=== PATIENT | female | born 1990 | race African-American/Black ===

== ENCOUNTER 2017-09-17 21:48 | Day surgery (SDC) | payer OTHER ==
[~2017-09-17] VITALS: Ht 157.5 cm; Wt 68.2 kg
[2017-09-17] MEDS: NS 1,000 ML IV SCH (23:35)
[2017-09-17 23:37] LABS: BASO # 0.1 10^3/uL (0.0-0.2); BASO % 0.6 % (0.0-1.0); EOS # 0.1 10^3/uL (0.0-0.50); EOS % 1.1 % (0.0-3.0); IMMATURE GRANULOCYTE % 0.1 % (0-0); LYMPH # 3.9 10^3/uL (1.5-6.5); LYMPH % 47.8 % (24.0-44.0); MEAN CORPUSCULAR HEMOGLOBIN 30.6 pg (27.0-33.0); MEAN CORPUSCULAR HGB CONC 33.1 g/dl (32.0-36.5); MEAN CORPUSCULAR VOLUME 92.5 fl (80.0-96.0); MONO # 0.4 10^3/uL (0.0-0.8); MONO % 4.9 % (0.0-5.0); NEUTROPHILS # 3.7 10^3/uL (1.8-7.7); NEUTROPHILS % 45.5 % (36.0-66.0); PLATELET COUNT, AUTOMATED 275 10^3/uL (150-450); RED CELL DISTRIBUTION WIDTH 13.2 % (11.5-14.5); WHITE BLOOD COUNT 8.1 10^3/uL (4.0-10.0)
[2017-09-17] MEDS ORDERED: MORPHINE 4 MG/ML 1ML SYRINGE IV ONE (23:45)
[2017-09-17] MEDS ORDERED: ONDANSETRON 4MG/2ML VIAL (J2405) IV ONE (23:45)
[2017-09-17 23:53] LABS: CONTROL LINE HCG INT CTR LINE PRESENT
[2017-09-17 23:58] LABS: ALBUMIN 3.5 GM/DL (3.2-5.2); ALBUMIN/GLOBULIN RATIO 1.03 (1.00-1.93); ALKALINE PHOSPHATASE 53 U/L (45-117); ALT/SGPT 20 U/L (12-78); ANION GAP 5 MEQ/L (8-16); AST/SGOT 16 U/L (7-37); BILIRUBIN,DIRECT 0.1 MG/DL (0.0-0.2); BILIRUBIN,TOTAL 0.3 MG/DL (0.2-1.0); BLOOD UREA NITROGEN 19 MG/DL (7-18); CALCIUM LEVEL 8.4 MG/DL (8.5-10.1); CARBON DIOXIDE LEVEL 28 MEQ/L (21-32); CHLORIDE LEVEL 105 MEQ/L (98-107); GLOMERULAR FILTRATION RATE > 60.0 (>60); GLUCOSE, FASTING 84 MG/DL (70-105); POTASSIUM SERUM 3.9 MEQ/L (3.5-5.1); SODIUM LEVEL 138 MEQ/L (136-145); TOTAL PROTEIN 6.9 GM/DL (6.4-8.2)
[2017-09-18] VITALS (7 sets, daily range): BP systolic 93–114; BP diastolic 57–63
[2017-09-18] MEDS ORDERED: GASTROGRAFIN SOLUTION 30ML PO ONE (00:20)
[2017-09-18] MEDS: NS 1,000 ML IV SCH ×2 (00:22→04:03)
[2017-09-18] MEDS ORDERED: GASTROGRAFIN SOLUTION 30ML (Q9963) As Ordered ONE (00:44)
[2017-09-18] MEDS ORDERED: GASTROGRAFIN SOLUTION 30ML (Q9963) PO ONE (00:50)
[2017-09-18] MEDS ORDERED: ISOVUE-370 76% 100ML VIAL (Q9967) As Ordered ONE (01:42)
--- NOTE | 2017-09-18 03:00 | REPUSA ---
CLINICAL HISTORY: Abdominal pain. TECHNIQUE: Multiple axial and coronal CT images were obtained through the abdomen and pelvis after ad ministration of oral and intravenous contrast material. COMMENTS: Diffuse thickening and enhancement of the appendix. Mild surrounding fat stranding. Mild surrounding free fluid. The liver is mildly enlarged with decreased attenuation without mass or defect. There is no intra or extrahepatic biliary ductal dilatation. The spleen is normal. The gallbladder is within normal limits . The pancreas is of normal contour and attenuation characteristics. There is no evidence of adrenal mass. Both kidneys demonstrate prompt and equal nephrograms. The kidneys are normal in size, shape and conf iguration. There is no evidence of renal or ureteral mass. No renal or ureteral calculi are identifie d. There is no hydroureter or hydronephrosis. There is no bowel wall thickening. No evidence for small or large bowel obstruction. There is no evid ence of abdominal ascites or lymphadenopathy. Moderate amount of fecal residue in the large bowels. There is no evidence of intrinsic or extrinsic bladder mass. There is no pelvic ascites or lymphadeno jennifer. Images of the lung bases show no evidence of pleural or parenchymal mass. There are no pleural effusi ons. The bony structures are free of lytic or blastic lesions. IMPRESSION: Large bowel fecal stasis. Mild hepatomegaly with fatty infiltration. Suspected mild changes of developing acute appendicitis. Surgical consultation is recommended. Thank you for your kind referral of this patient.
[2017-09-18] MEDS ORDERED: PIPERACILLIN/TAZOBACTAM SOD 3.375 GM in APPROPRIATE DILUENT 1 EA IV ONE (04:00)
[2017-09-18] MEDS: LR 1,000 ML IV SCH ×3 (05:15→21:15)
--- NOTE | 2017-09-18 11:37 | HPE ---
DATE OF ADMISSION: 09/18/2017 REASON FOR CONSULTATION: Abdominal pain. HISTORY OF PRESENT ILLNESS: The patient 26-year-old female who presents with a right lower quadrant abdominal pain that started around 5 p.m. last evening. The pain got progressively worse, so she came into emergency room for evaluation. In the emergency room (ER), she had normal vital signs and normal laboratories. However, a CT scan showed findings of mild constipation, as well as some right lower quadrant inflammation around the appendix suggestive of early acute appendicitis. She was admitted to [place] for observation. This morning, she is still having persistent pain in that right lower side. No nausea or vomiting. No fevers or chills. No other complaints other than this localized right lower quadrant pain. She denies any recent travel or illnesses. No previous trauma or recent trauma to the area. PAST MEDICAL HISTORY: Negative. ALLERGIES: None. SOCIAL HISTORY: Denies drug, alcohol, tobacco abuse. PREVIOUS SURGERIES: None. FAMILY HISTORY: Noncontributory. REVIEW OF SYSTEMS: Per positives and negative as stated in the history of present illness (HPI). PHYSICAL EXAMINATION General: Alert and oriented times three. No acute distress. Vital signs: Temperature 98, pulse 61, respirations 16, blood pressure 93/57, pulse oximetry 99% on room air. HEENT: Pupils equal, round, and reactive to light and accommodation. Heart: S1, S2, regular rate and rhythm. Lungs: Clear to auscultation bilaterally. Abdomen: Soft. Tender to palpation in the right lower quadrant. Localized guarding. No rebound. No rigidity. Bowel sounds positive. Extremities: No clubbing, cyanosis, or edema. LABORATORIES: White count 8.1, hemoglobin 12.2, platelets 275. Sodium 138, potassium 3.9. IMAGING: CT abdomen and pelvis shows large bowel fecal stasis, mild changes of developing acute appendicitis. There is diffuse thickening and enhancement of the appendix with mild surrounding fat stranding and mild surrounding free fluid. ASSESSMENT AND PLAN: The patient is a 26-year-old female with signs and symptoms consistent with acute appendicitis. RECOMMENDATION: Proceed with laparoscopic, possible open appendectomy. The risks and benefits of the procedure not limited but including bleeding, infection, hernia formation, damage to surrounding structures, possible need for further surgery were discussed in detail with the patient. Informed consent was obtained, and procedure was planned. After her procedure this afternoon, she will be kept on antibiotics overnight with plan for discharge home in the morning.
[2017-09-18] MEDS ORDERED: KETOROLAC 30 MG/ML VIAL (J1885) IV PRN (11:45)
[2017-09-18] MEDS ORDERED: ACETAMINOPHEN TAB 650MG DOSE (2X325MG) PO PRN (11:45)
[2017-09-18] MEDS: SENOKOT S TAB PO SCH ×2 (12:07→21:00)
[2017-09-18] MEDS: PIPERACILLIN/TAZOBACTAM SOD 3.375 GM in APPROPRIATE DILUENT 1 EA IV SCH ×2 (14:37→19:00)
[2017-09-18] MEDS: HEPARIN SOD (PORCINE) 5000 UNITS/ML VIAL SC SCH ×2 (15:51→22:00)
[2017-09-18] MEDS ORDERED: BUPIVACAINE/EPIN 0.25% 30 ML VIAL As Ordered ONE (17:21)
[2017-09-18] MEDS ORDERED: PROPOFOL 200 MG/20 ML VIAL As Ordered ONE (17:25)
[2017-09-18] MEDS ORDERED: ROCURONIUM BROMIDE 50 MG/5 ML VIAL/SYRINGE As Ordered ONE (17:25)
[2017-09-18] MEDS ORDERED: MIDAZOLAM INJ 2 MG/2 ML VIAL (J2250) As Ordered ONE (17:26)
[2017-09-18] MEDS ORDERED: fentaNYL 100 MCG/2 ML INJECTION (J3010) As Ordered ONE (17:26)
[2017-09-18] MEDS ORDERED: dexameTHASONE 4 MG/ML 1ML VIAL (J1100) As Ordered ONE (19:52)
[2017-09-18] MEDS ORDERED: NEOSTIGMINE 10 MG/10 ML VIAL (J2710) As Ordered ONE (19:52)
[2017-09-18] MEDS ORDERED: KETOROLAC 60 MG/2 ML VIAL (J1885) As Ordered ONE (19:52)
[2017-09-18] MEDS ORDERED: GLYCOPYRROLATE INJ 0.2 MG/ML 2 ML VIAL As Ordered ONE (19:52)
[2017-09-18] MEDS ORDERED: HYDROmorphone HCL 2 MG/ML 1ML VIAL (J1170) As Ordered ONE (20:08)
[2017-09-18] MEDS ORDERED: ONDANSETRON 4MG/2ML VIAL (J2405) As Ordered ONE (20:23)
[2017-09-18] MEDS ORDERED: PERCOCET 5MG/325MG TAB PO PRN (20:30)
[2017-09-18] MEDS ORDERED: HYDROmorphone HCL 1 MG/ML SYRINGE (J1170) IV PRN (20:30)
[2017-09-18] MEDS ORDERED: fentaNYL 100 MCG/2 ML INJECTION (J3010) IV PRN (20:30)
[2017-09-18] MEDS ORDERED: ONDANSETRON 4MG/2ML VIAL (J2405) IV PRN (20:30)
[2017-09-18] MEDS ORDERED: LR 1,000 ML IV SCH (20:30)
[2017-09-18] MEDS: ONDANSETRON 4MG/2ML VIAL (J2405) IV PRN (20:35)
--- NOTE | 2017-09-18 20:36 | RO ---
DATE OF PROCEDURE: 09/18/2017 PREOPERATIVE DIAGNOSIS: Acute appendicitis. POSTOPERATIVE DIAGNOSIS: Acute appendicitis. PROCEDURE: Laparoscopic appendectomy. SURGEON: Dr. Bin Beckwith [place] ROUTEMAN: None. ANESTHESIA: General. ESTIMATED BLOOD LOSS: 5 mL. COMPLICATIONS: None. INDICATIONS FOR PROCEDURE: The patient is a 26-year-old female who presents with right lower quadrant abdominal pain, found to have early acute appendicitis on CT. Recommendation was to proceed with laparoscopic, possible open appendectomy. Risks and benefits of procedure not limited to but including bleeding, infection, hernia formation, damage to surrounding structures and need for further surgery were discussed in detail with the patient. Informed consent was obtained and procedure was planned. DESCRIPTION OF PROCEDURE: The patient brought back to operating room six, after sufficient sedation the abdomen was sterilely prepped and draped. Next, a time-out was done to confirm proper patient, proper procedure. Following that, a 5 mm incision made in the left upper quadrant, Veress needle was inserted and the abdomen was insufflated to 15 mmHg. Next, the Veress needle was removed, 5 mm Optiview port was used to gain access to the abdomen. Once the abdomen was entered, 8 mm port was placed infraumbilically and another 5 mm port suprapubically in the midline. The appendix was easily identified. It was elevated up in the air, mesoappendix was taken down using the Enseal until the base of the appendix was reached. Once the base of the appendix was reached, it was ligated with two PDS Endoloops and then amputated using the Enseal. The appendix was then brought out through the 8 mm port site in a 5 mm EndoCatch bag. Once the appendix was removed, the abdomen was desufflated. Skin incisions were closed with #4-0 Vicryl subcuticular sutures. The abdomen was cleaned and dried. Steri-Strips, 4 x 4 and tape were applied thus ending procedure.
[2017-09-18] MEDS: MORPHINE 2 MG/ML 1ML SYRINGE IV PRN (23:45)
[2017-09-19 00:35] VITALS: BP 106/59
[2017-09-19] MEDS: PIPERACILLIN/TAZOBACTAM SOD 3.375 GM in APPROPRIATE DILUENT 1 EA IV SCH ×3 (00:49→13:05)
[2017-09-19] MEDS: LR 1,000 ML IV SCH (00:49)
[2017-09-19] MEDS: NORCO, ANEXSIA 5/325MG TABLET (HYDROcodone/ACETAMINOPHEN) PO PRN ×2 (01:30→11:49)
[2017-09-19 03:00] VITALS: BP 125/72
[2017-09-19] MEDS: ONDANSETRON 4MG/2ML VIAL (J2405) IV PRN ×2 (03:16→09:28)
[2017-09-19] MEDS: MORPHINE 2 MG/ML 1ML SYRINGE IV PRN (03:16)
[2017-09-19] MEDS: HEPARIN SOD (PORCINE) 5000 UNITS/ML VIAL SC SCH ×2 (06:36→14:55)
[2017-09-19 06:57] LABS: MEAN CORPUSCULAR HEMOGLOBIN 30.2 pg (27.0-33.0); MEAN CORPUSCULAR HGB CONC 33.6 g/dl (32.0-36.5); MEAN CORPUSCULAR VOLUME 89.7 fl (80.0-96.0); PLATELET COUNT, AUTOMATED 260 10^3/uL (150-450); RED CELL DISTRIBUTION WIDTH 12.6 % (11.5-14.5); WHITE BLOOD COUNT 11.7 10^3/uL (4.0-10.0)
[2017-09-19 07:14] LABS: ALBUMIN 3.4 GM/DL (3.2-5.2); ALBUMIN/GLOBULIN RATIO 1.06 (1.00-1.93); ALKALINE PHOSPHATASE 56 U/L (45-117); ALT/SGPT 20 U/L (12-78); ANION GAP 7 MEQ/L (8-16); AST/SGOT 17 U/L (7-37); BILIRUBIN,TOTAL 0.5 MG/DL (0.2-1.0); BLOOD UREA NITROGEN 11 MG/DL (7-18); CALCIUM LEVEL 8.6 MG/DL (8.5-10.1); CARBON DIOXIDE LEVEL 25 MEQ/L (21-32); CHLORIDE LEVEL 102 MEQ/L (98-107); CREATININE FOR GFR 0.79 MG/DL (0.55-1.02); GLOMERULAR FILTRATION RATE > 60.0 (>60); GLUCOSE, FASTING 141 MG/DL (70-105); MAGNESIUM LEVEL 1.6 MG/DL (1.8-2.4); POTASSIUM SERUM 4.1 MEQ/L (3.5-5.1); SODIUM LEVEL 134 MEQ/L (136-145); TOTAL PROTEIN 6.6 GM/DL (6.4-8.2)
[2017-09-19 08:02] VITALS: BP 116/67
[2017-09-19 11:48] VITALS: BP 119/69
[2017-09-19] MEDS: SENOKOT S TAB PO SCH (11:49)
[2017-09-19] MEDS ORDERED: SENN1TAB2 PO (15:01)
--- NOTE | 2017-09-20 17:07 | DSES ---
DATE OF ADMISSION: 09/18/2017 DATE OF DISCHARGE: 09/19/2017 ADMISSION DIAGNOSIS: Acute appendicitis. DISCHARGE DIAGNOSIS: Acute appendicitis. HOSPITAL COURSE: The patient is 26-year-old female presented early in the morning on the she was found to have acute appendicitis on CT scan she was taken to the operating room in the afternoon for laparoscopic appendectomy. Tolerated procedure well. She was started back on a regular diet in the evening. On the morning of 09/19 she was having a lot of gas pains from her surgery in the right upper quadrant going the right shoulder. She was advised to continue to ambulate which she did by the afternoon of the and her pain was much resolved. She was tolerating diet, pain was controlled and she was discharged home. She was discharged home with pain control and pain control and a stool softener. She did not require any antibiotics at discharge. She will followup with me in the office in 2 weeks. No lifting, pushing or pulling more 20 pounds for the first 2 weeks. No lifting, pushing, or pulling more than 20 pounds for the first 2 weeks, okay to shower and she was given instructions to call me if she has any problems or questions.
== END 2017-09-19 15:40 | disposition home or self-care (01) ==
LOC: M ED 21:48 → M SDC 09-18 03:55 → M PED 09-18 04:40 → M SDC 09-19 15:40
PROVIDERS: ATTEND Surgery
DX: K35.80 Unspecified acute appendicitis (principal); Z91.018 Allergy to other foods
CPT/HCPCS: 36415; 44970; 74177; 80048; 80053; 80076; 81001; 83690; 83735; 84703; 85025; 85027; 87040; 87077; 87086; 87186; 88304; 93041; 96374; 96375; 96376; 99285; J1100; J1170; J1885; J2250; J2405; J2543; J2710; J3010; Q9963; Q9967

== ENCOUNTER 2017-10-20 20:30 | Emergency (ER) | payer OTHER ==
[~2017-10-20] VITALS: Ht 157.5 cm; Wt 77.3 kg
[~2017-10-20 20:30] MED LIST: SENN1TAB2 PO
[2017-10-20] MEDS ORDERED: SENE8.6T (20:37)
--- NOTE | 2017-10-20 22:40 | REPUSA ---
Clinical history: Pain, swelling. Findings: The common femoral, superficial femoral, popliteal, and other deep venous structures compre ss normally and demonstrate normal color Doppler flow. Normal venous waveforms with augmentation are seen. Impression: No evidence of deep vein thrombosis in the right femoral popliteal venous system.
[2017-10-20 23:11] VITALS: BP 130/67
== END 2017-10-20 23:24 | disposition home or self-care (01) ==
LOC: M ED 20:30
DX: R22.41 Localized swelling, mass and lump, right lower limb (principal); Z79.899 Other long term (current) drug therapy

== ENCOUNTER 2018-01-03 09:28 | Emergency (ER) | payer OTHER ==
[2018-01-03] MEDS: METHOCARBAMOL 500 MG TAB PO (10:08)
[2018-01-03] MEDS: IBUPROFEN 600 MG TAB PO (10:09)
== END 2018-01-03 10:17 | disposition home or self-care (01) ==
LOC: M ED 09:28
DX: M54.42 Lumbago with sciatica, left side (principal); Z91.018 Allergy to other foods
CPT/HCPCS: 99283

== ENCOUNTER 2018-02-03 08:25 | Emergency (ER) | payer OTHER ==
[2018-02-03 09:48] LABS: BASO % 0.4 % (0.0-1.0); EOS # 0.1 10^3/uL (0.0-0.50); EOS % 1.9 % (0.0-3.0); HEMATOCRIT 39.5 % (36.0-47.0); HEMOGLOBIN 13.2 g/dl (12.0-15.5); IMMATURE GRANULOCYTE % 0.1 % (0-3.0); LYMPH # 2.7 10^3/uL (1.5-6.5); LYMPH % 40.8 % (24.0-44.0); MEAN CORPUSCULAR HEMOGLOBIN 30.1 pg (27.0-33.0); MEAN CORPUSCULAR HGB CONC 33.4 g/dl (32.0-36.5); MEAN CORPUSCULAR VOLUME 90.2 fl (80.0-96.0); MONO # 0.4 10^3/uL (0.0-0.8); MONO % 5.7 % (0.0-5.0); NEUTROPHILS # 3.4 10^3/uL (1.8-7.7); NEUTROPHILS % 51.1 % (36.0-66.0); PLATELET COUNT, AUTOMATED 281 10^3/uL (150-450); RED BLOOD COUNT 4.38 10^6/uL (4.00-5.40); WHITE BLOOD COUNT 6.7 10^3/uL (4.0-10.0)
[2018-02-03 09:52] LABS: KETONE, URINE AUTO RFX NEGATIVE (NEGATIVE); LEUKOCYTE ESTERASE UR AUTO RFX NEGATIVE (NEGATIVE); NITRITE, URINE AUTO RFX NEGATIVE (NEGATIVE); RBC, URINE AUTO RFX 0 /HPF (0-3); SPECIFIC GRAVITY UR AUTO RFX 1.002 (1.002-1.035); SQUAM EPITHELIAL CELL UR AURFX 1 /HPF (0-6); WBC, URINE AUTO RFX 0 /HPF (0-3)
[2018-02-03 10:17] LABS: HCG, SERUM QUANTITATIVE 99 MIU/ML
== END 2018-02-03 11:17 | disposition home or self-care (01) ==
LOC: M ED 08:25
DX: O20.0 Threatened abortion (principal); O34.81 Maternal care for other abnormalities of pelvic organs, first trimester; N83.201 Unspecified ovarian cyst, right side; Z3A.00 Weeks of gestation of pregnancy not specified; Z86.69 Personal history of other diseases of the nervous system and sense organs; Z87.19 Personal history of other diseases of the digestive system; Z91.018 Allergy to other foods
CPT/HCPCS: 76801

== ENCOUNTER 2021-02-10 01:38 | Emergency (ER) | payer OTHER ==
[~2021-02-10] VITALS: Ht 154.9 cm; Wt 81.9 kg
[~2021-02-10 01:38] MED LIST changes: +IBUP-1022 PO; +ROBA500T PO; +SENN-53 PO; -SENN1TAB2 PO; +SENN1TAB38
--- NOTE | 2021-02-10 03:37 | REPVR ---
PROCEDURE INFORMATION: Exam: US After First Trimester, Transabdominal Exam date and time: 02/10/2021 2:57 AM Age: 30 years old Clinical indication: complicated by abdominal or pelvic pain; Lower; Second trimester; Gestational age or lmp: 10/08/20; ; Additional info: 17 wk, pain and bleeding TECHNIQUE: Imaging protocol: Real-time transabdominal obstetrical ultrasound of the maternal pelvis and a second or third trimester with image documentation. COMPARISON: CT ABD/PEL W/IV ORAL CONTRAS 09/18/2017 1:43 AM FINDINGS: Gestation: Single intrauterine fetus. heart rate: heartbeat of 146 bpm. lie: Lie is variable Placenta: Posterior and fundal placenta. Amniotic fluid: Amniotic fluid is normal for gestational age. ANATOMY: The bladder, stomach, intracranial structures, cord insertion, visualized extremities, cord, face, nose/lips and profile, kidneys and four-chamber heart appear normal. BIOMETRY: Gestational age (AUA): The composite gestational age by ultrasound is 18 weeks 1 day. Estimated due date (AUA): The EDC is 07/13/2021. Estimated weight: The estimated weight is 223 grams and is 60th percentile. Estimated weight percentile: 60th Biparietal diameter: The BPD measures 4.0 cm suggesting an age of 18 weeks 2 days. Head circumference: The head circumference measures 14.8 cm suggesting an age of 18 weeks 0 days. Abdominal circumference: The abdominal circumference measures 12.5 cm suggesting an age of 18 weeks 1 day. Femur length: The femur length measures 2.6 cm suggesting an age of 18 weeks 1 day. MATERNAL ANATOMY: Uterus: Unremarkable. Cervix: The cervix is closed measuring 4.5 cm. IMPRESSION: Single live intrauterine fetus in variable lie with a composite age of 18 weeks 1 day. The EDC is 07/13/2021. Electronically signed by: Hector Patton On 02/10/2021 03:38:14 AM
[2021-02-10 05:21] VITALS: BP 130/70
== END 2021-02-10 05:09 | disposition home or self-care (01) ==
LOC: M ED 01:38
DX: O26.859 Spotting complicating pregnancy, unspecified trimester (principal); Z3A.18 18 weeks gestation of pregnancy; Z91.018 Allergy to other foods

== ENCOUNTER 2021-06-03 16:43 | Observation (INO) | payer OTHER ==
[~2021-06-03] VITALS: Ht 157.5 cm; Wt 74.7 kg
[2021-06-03 17:02] VITALS: BP 101/56
[2021-06-03 18:06] LABS: HEMATOCRIT 32.4 % (36.0-47.0); HEMOGLOBIN 11.1 g/dl (12.0-15.5); MEAN CORPUSCULAR HEMOGLOBIN 31.3 pg (27.0-33.0); MEAN CORPUSCULAR HGB CONC 34.3 g/dl (32.0-36.5); MEAN CORPUSCULAR VOLUME 91.3 fl (80.0-96.0); PLATELET COUNT, AUTOMATED 153 10^3/uL (150-450); RED BLOOD COUNT 3.55 10^6/uL (4.00-5.40); WHITE BLOOD COUNT 4.4 10^3/uL (4.0-10.0)
--- NOTE | 2021-06-03 18:16 | REP ---
INDICATION: r/o covid 19. COMPARISON: None. FINDINGS: The technique utilized in obtaining the radiograph has magnified the cardiac silhouette and accentuated the interstitial markings. The superior mediastinal structures are midline. The cardiac silhouette is unremarkable in size, shape, and position. The diaphragmatic surfaces of the lungs are regular, and the costophrenic angles are clear. The pulmonary marroquin are clear. The imaged osseous structures are intact. IMPRESSION: There is no acute cardiopulmonary disease. <Electronically signed by Juanjose Mei > 06/03/21 [id number]
[2021-06-03 18:35] LABS: BLOOD UREA NITROGEN 4 MG/DL (7-18); CALCIUM LEVEL 7.8 MG/DL (8.5-10.1); CARBON DIOXIDE LEVEL 22 MEQ/L (21-32); CHLORIDE LEVEL 108 MEQ/L (98-107); CREATININE FOR GFR 0.54 MG/DL (0.55-1.30); GLOMERULAR FILTRATION RATE > 60.0 (>60); GLUCOSE, FASTING 109 MG/DL (70-100); POTASSIUM SERUM 3.5 MEQ/L (3.5-5.1); SODIUM LEVEL 138 MEQ/L (136-145)
[2021-06-03] MEDS ORDERED: CYCLOBENZAPRINE 10MG TABLET PO ONE (19:20)
--- NOTE | 2021-06-03 19:58 | HPEPDOC ---
Obstetrical History & Physical General Date of Admission 06/03/2021 History of Present Illness 30 yo @ 33+6 weeks who presents with left sided abdominal pain after 2 days of couphing. patient had a friend visiting from [place] who tested positive for covid yesterday. patient was seen at [facility] and in the ED but was not ev aluated due to her abdominal pain. she was tested here in triage and was found to be positive for covid 19. in addition, she reports chest pain when she takes deep breaths. she is saturating 98 on room air. she denies an vaginal bleeding, loss of fluids, decreased movements. 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 BREAST: . ABDOMEN: Gravid and tender to the right side of the abdomen FETUS:reactive NST HEART RATE: Regular rate and rhythm. LUNGS: Clear to auscultation (CTA) to the left side. no breath sounds heard on the right side EXTREMITIES: No edema. No clonus. Deep tendon reflexes (DTRs) + . Vital Signs/I&O Vital Signs Date Time Temp Pulse Resp B/P (MAP) Pulse Ox O2 Delivery O2 Flow Rate FiO2 06/03/21 17:02 99.6 98 20 101/56 (71) 99 Room Air Laboratory Data 24H LABS Laboratory Tests 2 06/03/21 17:47: Nucleated Red Blood Cells % (auto) 0.0, Anion Gap 8, Glomerular Filtration Rate > 60.0, Calcium Level 7.8L CBC/BMP Laboratory Tests 06/03/21 17:47 Microbiology Microbiology 06/03/21 Respiratory Virus Panel (PCR) ([facility]) - Final, Complete SARS-CoV-2 (COVID 19) Assessment Heart Rate (FHR): 145 Variability: Moderate Accelerations: Positive Decelerations: None Tocometer Contractions: Yes Frequency: irregular Duration: less than 60 seconds Assessment/Plan Assessment 30 yo @ 34 weeks who presents with left sided abdominal pain after 2 days of couching and found to be positive for covid 19. she is saturating 98 on room air.has reactive NST and irregular contractions. she is having pleuritic chest pain. X-RAY was obtained and is unremarkable -Hospitalist consulted and will be following -will give Flexeril for suspected musculoskeletal pain -will obtain kidney US for CVA tenderness - Had normal CBC, CMP labs -will keep for observation per Hospitalist team recommandation -WE appreciate hospitalist team help in caring for this patient Plan Admit for observation and orient. 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 Diet: regular. TRACE ECKERT MD Jun 03, 2021 19:58
[2021-06-03] MEDS ORDERED: ACETAMINOPHEN TAB 650MG DOSE (2X325MG) PO PRN (20:00)
--- NOTE | 2021-06-03 20:32 | CR.PDOC ---
General Date of Consultation: Jun 03, 2021 Consultation REASON FOR CONSULTATION/CHIEF COMPLAINT: positive for COVID-19, cough HISTORY OF PRESENT ILLNESS: 30 yo F, at 33W+6D, presented to ER with a 1 day hx of cough, malaise, LUQ and L low back pain radiating to flank. She also had a fever recorded at home to 102.0, which responded well to OTC acetaminophen. Patient had a visitor who tested positive for covid. Patient tested positive for Covid-19 today. Patient denies SOB, hemoptysis, focal weakness or numbness, dysuria. She has subjective fevers and chills. Hospitalist service was consulted for evaluation due to diagnosis of covid-19. reviewed patient's labs and vitals. She is saturating at 98% at rest, and does not desaturate on ambulation. ALLERGIES: Please see below. HOME MEDICATIONS: Please see below. PAST MEDICAL HISTORY: Pyelonephritis PAST SURGICAL HISTORY: Appendectomy FAMILY HISTORY: Reports history of cardiac events on mother's side, unable to specify further SOCIAL HISTORY: Non smoker Non drinker No illicit drug use REVIEW OF SYSTEMS: 10 point ROS conducted, relevant findings are noted in the HPI. PHYSICAL EXAMINATION: VITAL SIGNS: please see below General: NAD, comfortable HEENT: PERRLA, EOMI, sclerae clear Neck: supple, normal ROM, no JVD Respiratory: lungs CTAB, no wheeze, no rales, no crackles CVS: RRR, normal S1, S2, no murmurs Abdo: gravid abdomen. Mild to mod tenderness to palpation in LUQ. Extremities: no edema, pulses 2+, no swelling of calves. MSK: L CVA tenderness Neuro: no focal neuro deficits, moving all 4 extremities, CN2-12 intact. Strength 5/5 in all 4 extremities. No nystagmus. Psych: calm, cooperative, AAO x 3 LABORATORY DATA: Please see below. ASSESSMENT/PLAN: #Covid-19 positive: Day 1 of symptom onset. Positive contact. No hypoxia at rest or exertion. No dyspnea. Primary symptom is malaise, fevers, cough. not a candidate for remdesivir or dexamethasone based on oxygenation. lack of evidence of safety profile to suggest use of monoclonal antibodies in , would avoid use at this time. Support care recommended: tylenol prn for fevers, oral fluid repletion, bed rest. DVT ppx while in hospital with lovenox. #LUQ pain, L flank pain/CVA tenderness: Cr 0.54. Voiding spontaneously. Check UA with urine culture. Check renal US. OB causes of abdo pain being worked up by primary OB service. Thank you for involving me in the care of this patient. Will continue to follow. Vital Signs/I&O Vital Signs Date Time Temp Pulse Resp B/P (MAP) Pulse Ox O2 Delivery O2 Flow Rate FiO2 06/03/21 17:02 99.6 98 20 101/56 (71) 99 Room Air Laboratory Data Labs 24H Laboratory Tests 2 06/03/21 17:47: Nucleated Red Blood Cells % (auto) 0.0, Anion Gap 8, Glomerular Filtration Rate > 60.0, Calcium Level 7.8L CBC/BMP Laboratory Tests 06/03/21 17:47 Microbiology Microbiology 06/03/21 Respiratory Virus Panel (PCR) ([facility]) - Final, Complete SARS-CoV-2 (COVID 19) Allergies Coded Allergies: pineapple (Verified Allergy, Unknown, 02/10/21) Home Medications No Active Prescriptions or Reported Meds PAO ARANA MD Jun 03, 2021 20:32
[2021-06-03 22:10] VITALS: BP 114/73
[2021-06-03 22:19] VITALS: BP 97/58
[2021-06-03] MEDS: LR 1,000 ML IV SCH (22:33)
[2021-06-04] MEDS: LR 1,000 ML IV SCH (03:55)
[2021-06-04 04:00] VITALS: BP 104/67
[2021-06-04] MEDS ORDERED: PERCOCET 5MG/325MG TAB PO PRN (06:05)
--- NOTE | 2021-06-04 08:24 | REP ---
INDICATION: r/o hydronephrosis. COMPARISON: None. TECHNIQUE: Multiple ultrasonographic images of the kidneys. FINDINGS: Patient is at 34 weeks gestational age. heart rate is 150 beats per minute. The fetus is in a vertex presentation. The right kidney measures 11.3 x 6.3 x 4.1 cm. The left kidney measures 12.1 x 5.1 by 5.8 cm. The kidneys are normal size. Renal cortical echogenicity is normal bilaterally. The right renal pelvis is dilated. There is mild right renal caliectasis. The left renal pelvis is dilated. There is left renal mild caliectasis. There are no renal calculi. There are no solid or cystic renal masses. Bladder: The bladder is not well distended. Were unable to identify ureteral jets with color Doppler assessment. The resistive index in the intraparenchymal renal arteries on the right is 0.61 on the left is 0.63. IMPRESSION: The renal pelves are dilated bilaterally. There is mild caliectasis bilaterally. The bladder is not well distended and cannot be further evaluated. <Electronically signed by Bin Zurita > 06/04/21 [id number]
[2021-06-04 08:49] LABS: BASO % 0.2 % (0.0-1.0); EOS % 0.2 % (0.0-3.0); HEMATOCRIT 31.1 % (36.0-47.0); HEMOGLOBIN 10.6 g/dl (12.0-15.5); LYMPH # 0.8 10^3/uL (1.5-5.0); LYMPH % 17.1 % (24.0-44.0); MEAN CORPUSCULAR HEMOGLOBIN 31.5 pg (27.0-33.0); MEAN CORPUSCULAR HGB CONC 34.1 g/dl (32.0-36.5); MEAN CORPUSCULAR VOLUME 92.6 fl (80.0-96.0); MONO # 0.4 10^3/uL (0.0-0.8); MONO % 8.8 % (2.0-8.0); NEUTROPHILS # 3.6 10^3/uL (1.5-8.5); NEUTROPHILS % 72.9 % (36.0-66.0); PLATELET COUNT, AUTOMATED 152 10^3/uL (150-450); RED BLOOD COUNT 3.36 10^6/uL (4.00-5.40); WHITE BLOOD COUNT 4.9 10^3/uL (4.0-10.0)
[2021-06-04] MEDS ORDERED: PRENATAL VITAMINS CHEWABLE TABLET PO SCH (09:00)
[2021-06-04] MEDS ORDERED: ENOXAPARIN 40MG/0.4ML SYRINGE (J1650 PER 10MG) SC SCH (09:00)
[2021-06-04 09:14] LABS: ERYTHROCYTE SEDIMENTATION RATE 35 mm/hr (0-20)
[2021-06-04 09:17] LABS: ALBUMIN 2.4 GM/DL (3.2-5.2); ALT/SGPT 28 U/L (12-78); BILIRUBIN,TOTAL 0.2 MG/DL (0.2-1.0); BLOOD UREA NITROGEN 4 MG/DL (7-18); C REACTIVE PROTEIN QUANTITATIV 0.68 MG/DL (0.00-0.30); CALCIUM LEVEL 8.1 MG/DL (8.5-10.1); CARBON DIOXIDE LEVEL 24 MEQ/L (21-32); CHLORIDE LEVEL 108 MEQ/L (98-107); CREATININE FOR GFR 0.43 MG/DL (0.55-1.30); GLOMERULAR FILTRATION RATE > 60.0 (>60); GLUCOSE, FASTING 101 MG/DL (70-100); LDH LACTATE DEHYDROGENASE 128 U/L (84-246); MAGNESIUM LEVEL 1.7 MG/DL (1.8-2.4); NT-PRO BNP 45 PG/ML (<125); POTASSIUM SERUM 3.5 MEQ/L (3.5-5.1); SODIUM LEVEL 137 MEQ/L (136-145); TOTAL PROTEIN 5.3 GM/DL (6.4-8.2); TROPONIN I < 0.02 NG/ML (< 0.10)
--- NOTE | 2021-06-04 11:11 | IPNPDOC ---
Text Note Date of Service The patient was seen on 06/04/21. NOTE SUBJECTIVE: Patient was seen and examined this morning at bedside. She states she is feeling well in regard to her breathing. She continues to have left-sided flank pain extending down to the left lower back and LUQ. OBJECTIVE: VITAL SIGNS: See below GENERAL: Alert, comfortable, in no acute distress HEENT: Normocephalic, atraumatic, moist mucous membranes NECK: Supple, trachea midline, no lymphadenopathy CARDIOVASCULAR: Regular rate and rhythm, normal S1 and S2. No murmurs, rubs, or gallops RESPIRATORY: Clear to auscultation bilaterally with equal air entry bilaterally. No wheezing, rhonchi, or rales. ABDOMEN: gravid abdomen. Mildly tender in the LUQ EXTREMITIES: No edema. no calf tenderness MUSCULOSKELETAL: tender over the left flank extending into the left lower back. No right sided tenderness. NEUROLOGIC: Alert and oriented x3 to person, place and time. No focal deficits appreciated PSYCHIATRIC: Mood and affect appropriate Renal U/S: The renal pelves are dilated bilaterally. There is mild caliectasis bilaterally. The bladder is not well distended and cannot be further evaluated. ASSESSMENT/PLAN: 30 year old female, at 34W+0D who presented with LUQ and left flank pain reporting fever at home up to 102F and one day of cough and malaise found to be positive for COVID-19, admitted by OB service to monitor her and medicine was consulted for additional recommendations # COVID-19 infection - symptomatically stable, fevers responsive to tylenol - no hypoxia, she is not not a candidate for remdesivir or dexamethasone at this time - lack of evidence for safety of monoclonal antibodies in - DVT ppx with lovenox recommended while in the hospital # L flank pain most likely 2/2 musculoskeletal cause - Cr stable, renal u/s does not show hydronephrosis but does comment on some pelvic dilation and caliectasis bilaterally - check UA which has not yet been collected - pain control per primary team Thank you for this consultation, we will continue to follow along with the care of this patient. VS,Fishbone, I+O VS, Fishbone, I+O Laboratory Tests 06/03/21 17:47 06/04/21 08:08 Vital Signs Date Time Temp Pulse Resp B/P (MAP) Pulse Ox O2 Delivery O2 Flow Rate FiO2 06/04/21 06:17 18 Room Air 06/04/21 04:00 100.2 98 104/67 (79) 99 I&O- Last 24 Hours up to 6 AM 06/04/21 06:00 Output Total 925 ml Balance -925 ml GME ATTESTATION GME ATTESTATION My faculty preceptor for this patient encounter was physically present during the encounter and was fully available. All aspects of the patient interview, examination, medical decision making process, and medical care plan development were reviewed and approved by the faculty preceptor. The faculty preceptor is aware and concurs with the plan as stated in the body of this note and will attest to such by his/her cosignature. ATTENDING NOTE I personally examined Ms. Moreno and discussed her findings and plan with the resident team and the OB primary team. I agree with the above noted findings and plan. Briefly, she is a 30 year old W at 34W who presented with LUQ and left flank pain and was admitted for observation after being found to be positive for COVID-19 and is otherwise doing relatively well with stable vitals, no hypoxemia and mild inflammatory marker elevation. She is safe for home discharge from a medicine perspective with recommendation for supportive tylenol for fever, aggressive hydration as tolerated and self isolation until resolution of symptoms or 14d. VIOLET BAL D.O. Jun 04, 2021 11:11 VASYL ACOSTA MD Jun 05, 2021 11:13
[2021-06-04 12:00] VITALS: BP 104/60
[2021-06-04] MEDS ORDERED: cefTRIAXone SOD 1 GM in D5W MINI-BAG PLUS 50 ML IV ONE (14:00)
--- NOTE | 2021-06-04 14:04 | IPNPDOC ---
Text Note Date of Service The patient was seen on 06/04/21. NOTE Patient seen at the bedside today in appropriate COVID-19 precaution attire. Elizabeth reports feeling tired. She continues to have left sided pelvic girdle and hip pain. She denies any vaginal bleeding, leakage of fluid, or contractions. She endorses regular movement. In addition, she denies any SOB, chest pain, or headaches. She is tolerating a regular diet. She is ambulatory. Vitals - VSS, afebrile (tmax 100.4) current temp 96.9. BP 100s/60s, HR 80s. O2 sats 97-99% on RA General - Laying in bed, AAOX3 Abdomen - Gravid uterus appropriate size for gestational age. No fundal tenderness. New Labs: UA - clean catch. 3+ leuk est, 2+ bacteria, 4 WBCs, neg nitrites Elizabeth remains stable today. Sats are well maintained on RA. No obstetrical concerns. Left sided pain seems to be MSK in origin (this has been a chronic issue), though urine is suspicious for possible UTI. Treated with one dose of IV rocephin as we await culture results. Will initiate oral antibiotics if necessary. We discussed monoclonal antibody treatment, as her increa ses her risk severe COVID-19 disease. She is a candidate and meets criteria. However, Elizabeth declined this treatment, citing her discomfort with the lack of data/studies on monoclonal antibody therapy for COVID-19 in . At this time she is stable for discharge home. We reviewed strict return precautions. She will isolate at home for 10 days. Much appreciate the hospitalist service's assistance in management of this patient. 30 minutes Gavin Rucker I+O Gavin CEBALLOS I+O Laboratory Tests 06/03/21 17:47 06/04/21 08:08 Vital Signs Date Time Temp Pulse Resp B/P (MAP) Pulse Ox O2 Delivery O2 Flow Rate FiO2 06/04/21 12:00 96.9 83 18 104/60 (75) 99 Room Air I&O- Last 24 Hours up to 6 AM 06/04/21 05:59 Output Total 925 ml Balance -925 ml CHARBEL BANKS DO Jun 04, 2021 14:04
--- NOTE | 2021-06-04 16:11 | DS.PDOC ---
Discharge Summary General Date of Admission Jun 03, 2021 at 16:44 Date of Discharge Jun 04 2021 Discharge Summary ADMITTING DIAGNOSES: 1. Third Trimester 2. Symptomatic COVID-19 DISCHARGE DIAGNOSES: 1. ZAHEER COMPLICATIONS/CHIEF COMPLAINT: Covid-19. HOSPITAL COURSE: Ms. Moreno is a 30 yo who was admitted at 33+6 weeks gestation for observation due to symptomatic COVID-19. She had a recent close contact who tested positive, and she then subsequently developed symptoms of fevers, malaise, and cough shortly thereafter. She presented to the ER and was sent to L&D for evaluation. While on L&D she tested positive for COVID-19. She had some right sided abdominal pain as well, but this was exacerbated by her cough and seemed to be a chronic issue. The hospitalist service was consulted during her admission for recommendations regarding her COVID-19 diagnosis. She did not require oxygen at any point while in the hospital. status remained reassuring and she had no obstetric complaints. UA was notable for possible UTI, and she was empirically treated with a dose of rocephin while we await urine culture results. She had no other symptoms of pyelonephritis. She met criteria for monoclonal antibody therapy and was offered it. She declined however, citing her concern of its lack of study in . On her day of discharge she met all appropriate discharge criteria. She was ambulating, voiding on her own, tolerating PO, maintaining O2 saturation on RA, and her fever was responsive to tylenol. DISCHARGE MEDICATIONS: Please see below. ALLERGIES: Please see below. PHYSICAL EXAMINATION ON DISCHARGE: VITAL SIGNS: Please see below. GENERAL: AAOX3, laying in bed, tired appearing CARDIOVASCULAR EXAMINATION: RRR RESPIRATORY EXAMINATION:CTAB ABDOMINAL EXAMINATION: Gravid uterus. No fundal tenderness EXTREMITIES: No edema PSYCHIATRIC EXAMINATION: Affect appropriate LABORATORY DATA: Please see below. ACTIVITY: Isolate at home for 10 days. Return to care for worsening symptoms such as SOB, chest pain, worsening fevers unresponsive to tylenol, vaginal bleeding, worsening abdominal pain, PO intolerance, leakage of fluid, or decreased movement. DIET: Regular DISCHARGE PLAN: Discharge home DISPOSITION: Discharge to home isolation. DISCHARGE INSTRUCTIONS: 1. Isolate at home for 10 days. ITEMS TO FOLLOWUP ON ON OUTPATIENT: 1. Contact the [facility] clinic at [phone] for worsening symptoms. DISCHARGE CONDITION: Stable TIME SPENT ON DISCHARGE: 20 minutes. Julian Vital Signs/I&Os Vital Signs Date Time Temp Pulse Resp B/P (MAP) Pulse Ox O2 Delivery O2 Flow Rate FiO2 06/04/21 12:00 96.9 83 18 104/60 (75) 99 Room Air I&O- Last 24 Hours up to 6 AM 06/04/21 06:00 Output Total 925 ml Balance -925 ml Laboratory Data Labs 24H Laboratory Tests 2 06/03/21 17:47: Nucleated Red Blood Cells % (auto) 0.0, Anion Gap 8, Glomerular Filtration Rate > 60.0, Calcium Level 7.8L 06/04/21 08:08: Nucleated Red Blood Cells % (auto) 0.0, Anion Gap 5L, Glomerular Filtration Rate > 60.0, Calcium Level 8.1L, Immature Granulocyte % (Auto) 0.8, Neutrophils (%) (Auto) 72.9H, Lymphocytes (%) (Auto) 17.1L, Monocytes (%) (Auto) 8.8H, Eosinophils (%) (Auto) 0.2, Basophils (%) (Auto) 0.2, Neutrophils # (Auto) 3.6, Lymphocytes # (Auto) 0.8L, Monocytes # (Auto) 0.4, Eosinophils # (Auto) 0.0, Basophils # (Auto) 0.0, Erythrocyte Sedimentation Rate 35H, Magnesium Level 1.7L, Total Bilirubin 0.2, Aspartate Amino Transf (AST/SGOT) 20, Alanine Aminotransferase (ALT/SGPT) 28, Alkaline Phosphatase 91, Lactate Dehydrogenase 128, Troponin I < 0.02, C-Reactive Protein, Quantitative 0.68H, JH-Nik-G-Type Natriuretic Peptide 45, Total Protein 5.3L, Albumin 2.4L, Albumin/Globulin Ratio 0.8L 06/04/21 12:21: Urine Color STRAW, Urine Appearance CLEAR, Urine pH 7.0, Urine Specific [place] 1.002, Urine Protein NEGATIVE, Urine Glucose (UA) NEGATIVE, Urine Ketones NEGATIVE, Urine Blood 1+H, Urine Nitrite NEGATIVE, Urine Bilirubin NEGATIVE, Urine Urobilinogen 0.2, Urine Leukocyte Esterase 3+H, Urine WBC (Auto) 4H, Urine RBC (Auto) 10H, Urine Hyaline Casts (Auto) 0, Urine Bacteria (Auto) 2+H, Urine Squamous Epithelial Cells 3, Urine Sperm (Auto) CBC/BMP Laboratory Tests 06/03/21 17:47 06/04/21 08:08 Microbiology Microbiology 06/04/21 Urine Culture, Received Pending 06/03/21 Respiratory Virus Panel (PCR) ([facility]) - Final, Complete SARS-CoV-2 (COVID 19) Discharge Medications No Active Prescriptions or Reported Meds Allergies Coded Allergies: pineapple (Verified Allergy, Unknown, 02/10/21) CHARBEL BANKS DO Jun 04, 2021 16:11
== END 2021-06-04 16:34 | disposition home or self-care (01) ==
LOC: M LDO 16:43 → M 4MAIN 16:44
PROVIDERS: ADMIT Obstetrics & Gynecology; ATTEND Registered Nurse
DX: O98.513 Other viral diseases complicating pregnancy, third trimester (principal); U07.1 COVID-19; Z3A.34 34 weeks gestation of pregnancy; O26.893 Other specified pregnancy related conditions, third trimester; R10.12 Left upper quadrant pain; R07.89 Other chest pain; M54.5 Low back pain; Z91.018 Allergy to other foods
CPT/HCPCS: 36415; 59025; 71045; 76775; 80048; 80053; 81001; 83615; 83735; 83880; 84484; 85025; 85027; 85652; 86140; 87086; 87798; 96374; J0696

== ENCOUNTER 2021-07-12 04:01 | Inpatient (IN) | payer OTHER ==
[~2021-07-12] VITALS: Ht 157.5 cm; Wt 93.9 kg
[2021-07-12] VITALS (20 sets, daily range): BP systolic 95–165; BP diastolic 52–105
[2021-07-12] MEDS ORDERED: TRANEXAMIC ACID INJection 1,000 MG in NS 100 ML IV PRN (04:50)
[2021-07-12] MEDS ORDERED: OXYTOCIN DRIP 30 UNITS in IV 1 EA IV PRN (04:50)
[2021-07-12] MEDS ORDERED: LIDOCAINE 1% MDV 20ML VIAL INFIL PRN (04:50)
[2021-07-12] MEDS ORDERED: PRENTAB9 PO (04:55)
--- NOTE | 2021-07-12 04:59 | HPEPDOC ---
Obstetrical History & Physical General Date of Admission Jul 12, 2021 at 04:47 History of Present Illness 30 yo at 39+3 weeks gestation presented to L&D with the complaint of wo rsening contractions over the last 24 hours. She endorses some spotting as well but denies any leakage of fluid. She endorses regular movement. Chief Complaint: Contractions, term Information Provided By: Patient Age: 30 : 2 Term: 0 Pre-term: 0 Abortions: 1 Livin Care Care: Good Care Dating Final EDC: Jul 16, 2021 Final EDC for Daily Update: Jul 16, 2021 Final EDC by: LMP (LMP of [id number] set PATRICK of [id number]) Antepartum Course Diagnos(e)s Depression/Anxiety Excessive weight gain (50 lbs) Past Medical History Past Obstetrical History : Past Obstetrical History: Multigravida (History of SAB) HOME HEALTH CARE COORDINATOR History: Spontaneous Past Medical History Medical History Depression/Anxiety Surgical History: Appendectomy Family History Significant Family History: No pertinent family hx Social History Marital Status: Family situation: Spouse/partner home Psychosocial History: Anxiety, Depression * Smoker: non-smoker Alcohol: Denies Imunizations Tdap status: current Influenza Status: needs Allergies Coded Allergies: pineapple (Verified Allergy, Unknown, 02/10/21) Medications No Active Prescriptions or Reported Meds Physical Examination Physical Examination GENERAL: Alert and oriented times three. ABDOMEN: Gravid and non-tender to touch. FETUS: Is vertex (VTX) by sterile vaginal examination (SVE) EXTREMITIES: No edema. Laboratory Data Urine Culture: No Growth Pertinent Laboratoy Data Blood Type: O+ RBC Antibody Screen: Negative HIV: Negative Hepatitis B: Negative Hepatitis C: Unknown Rapid Plasma Reagin: Nonreactive Rubella: Immune Varicella: Immune Chlamydia/Gonorrhea: Negative Group B Streptococcus: Negative Quad Screen Test: Unknown Cystic Fibrosis: Unknown Glucose Tolerance Test: 108 Anatomy Ultrasound Placenta Location: Posterior Normal Anatomy: Yes Placenta Previa: No Steroid Therapy Steroid Therapy: No Vaginal Examination Dilation: 3 cm Effacement: 90% Station: -2 Cervical Consistency: Soft Cervical Position: Middle Presentation: Cephalic presentation Position: Vertex (occiput) Assessment Heart Rate (FHR): 145 Variability: Moderate Accelerations: None Decelerations: None Tocometer Frequency: regular Strength: palpated as strong Assessment/Plan Assessment 30 yo at 39+3 weeks gestation presented to L&D in early labor and with a non reactive NST. Plan Admit for expectant management of labor. Will augment as clinically indicated. FHR tracing Cat I, with moderate variability, but no true accels. Apply IV fluids. GBS negative. Labs per L&D protocol. Clear liquid diet. Patient may have epidural if desired. Anticipate . CHARBEL BANKS. DO Jul 12, 2021 04:59
[2021-07-12] MEDS ORDERED: HOME MED LIST COMPLETE! XX SCH (06:00)
[2021-07-12 06:30] LABS: HEMATOCRIT 33.4 % (36.0-47.0); HEMOGLOBIN 11.6 g/dl (12.0-15.5); MEAN CORPUSCULAR HEMOGLOBIN 31.3 pg (27.0-33.0); MEAN CORPUSCULAR HGB CONC 34.7 g/dl (32.0-36.5); PLATELET COUNT, AUTOMATED 208 10^3/uL (150-450); RED BLOOD COUNT 3.71 10^6/uL (4.00-5.40); WHITE BLOOD COUNT 12.9 10^3/uL (4.0-10.0)
--- NOTE | 2021-07-12 09:45 | IPNPDOC ---
Obstetrical Progress Note Date of Service Jul 12, 2021 Subjective 30 yo at 39w3d with PATRICK of 16 JUL 2021 admitted for labor. She is breathing and working through her contractions. She has supportive family at the bedside. Objective Vital Signs Date Time Temp Pulse Resp B/P (MAP) Pulse Ox O2 Delivery O2 Flow Rate FiO2 07/12/21 06:25 81 18 107/64 (78) 07/12/21 04:27 98.4 Assessment Heart Rate (FHR): 145 Variability: Moderate Accelerations: Present Decelerations: Early, Variable Tocometer Contractions: Yes Frequency: irregular Sterile Vaginal Examination Dilation: 3 cm Effacement (%): 90% Station: -2 Cervical Consistency: Soft Postion/Presentation: Cephalic presentation Assessment and Plan Age: 30 : 2 Term: 0 Pre-term: 0 Abortions: 1 Livin Weeks & Days 39w3d Status: Reassuring Group B Streptococcus: Negative Anticipate: Vaginal Delivery Additional Comments I discussed 2 options: AROM vs starting pitocin augmentation as cervical exam is unchanged from prior exam about 2 hours ago. We discussed that contractions are spaced out and goal is to have contractions closer together and stronger to changes cervix She desires to think about options and will make her decision after she has eaten She desires for IV pain medication and I discussed with her that if she would like IV pain medication, then would recommend for her to be in the bed, to decrease risks of falls. She and her spouse verbalized understanding of all the information and all questions were answered to their satisfaction. They are without any further questions at this time. MELODY HUMPHREY CNM Jul 12, 2021 08:24
[2021-07-12] MEDS: PROMETHAZINE INJ 25 MG/ML VIAL (J2550) IV PRN ×2 (10:31→14:26)
[2021-07-12] MEDS: BUTORPHANOL 2 MG/ML INJ (J0595) IV PRN ×2 (10:31→14:26)
[2021-07-12] MEDS ORDERED: OXYTOCIN DRIP 30 UNITS in IV 1 EA IV SCH (10:45)
[2021-07-12] MEDS ORDERED: LR 1,000 ML IV SCH (10:45)
--- NOTE | 2021-07-12 10:47 | IPNPDOC ---
Obstetrical Progress Note Date of Service Jul 12, 2021 Subjective 30 yo at 39w3d with PATRICK of 16 JUL 2021 admitted for labor. She is breathing and working through her contractions. She has just received 1 dose of stadol and phenergan for pain and is now resting in the bed. She has decided that she would like to start pitocin. She has supportive family at the bedside. Objective Vital Signs Date Time Temp Pulse Resp B/P (MAP) Pulse Ox O2 Delivery O2 Flow Rate FiO2 07/12/21 10:31 16 07/12/21 09:40 97.4 71 111/64 (80) Assessment Heart Rate (FHR): 145 Variability: Moderate Accelerations: None Decelerations: None Tocometer Contractions: Yes Frequency: irregular Sterile Vaginal Examination Dilation: 3 cm Effacement (%): 90% Station: -2 Cervical Consistency: Soft Cervical Position: Anterior Postion/Presentation: Cephalic presentation Assessment and Plan Age: 30 : 2 Term: 0 Pre-term: 0 Abortions: 1 Livin Weeks & Days 39w3d Status: Reassuring Group B Streptococcus: Negative Anticipate: Vaginal Delivery Additional Comments Discussed that cervix has been unchanged since admission. She has decided to start pitocin augmentation at this time MELODY HUMPHREY CNM Jul 12, 2021 10:47
[2021-07-12] MEDS: LR 1,000 ML IV SCH ×3 (10:57→20:50)
--- NOTE | 2021-07-12 14:25 | IPNPDOC ---
Obstetrical Progress Note Date of Service Jul 12, 2021 Subjective 30 yo at 39w3d with PATRICK of 16 JUL 2021 admitted for labor. It is difficult to monitor the infant and contractions externally. Discussed placing IUPC and FSE. She is agreeable to this plan. Objective Vital Signs Date Time Temp Pulse Resp B/P (MAP) Pulse Ox O2 Delivery O2 Flow Rate FiO2 07/12/21 10:57 97.9 81 16 95/52 (66) IUPC and FSE placed without difficulty Vertex confirmed by bedside US. Assessment Heart Rate (FHR): 145 Variability: Moderate Accelerations: None Decelerations: Variable Tocometer Contractions: Yes (every 3-6 minutes) Sterile Vaginal Examination Dilation: 5 cm Effacement (%): 90% Station: -2 Cervical Consistency: Soft Cervical Position: Middle Postion/Presentation: Cephalic presentation Assessment and Plan Age: 30 : 2 Term: 0 Pre-term: 0 Abortions: 1 Livin Weeks & Days 39w3d Status: Reassuring Group B Streptococcus: Negative Anticipate: Vaginal Delivery MELODY HUMPHREY CNM Jul 12, 2021 13:38
--- NOTE | 2021-07-12 15:53 | IPNPDOC ---
Obstetrical Progress Note Date of Service Jul 12, 2021 Subjective 30 yo at 39w3d with PATRICK of 16 JUL 2021 admitted for labor. She stepped on her IUPC and it came out. She is agreeable to having another IUPC placed. She has received another dose of stadol and phenergan and is resting at the side of the bed between contractions. Objective Vital Signs Date Time Temp Pulse Resp B/P (MAP) Pulse Ox O2 Delivery O2 Flow Rate FiO2 07/12/21 14:26 97.6 103 18 145/77 (99) IUPC placed without difficulty Assessment Heart Rate (FHR): 145 Variability: Moderate Accelerations: Present Decelerations: None Tocometer Contractions: Yes (every 3-5 minutes) Sterile Vaginal Examination Dilation: 7 cm Effacement (%): 90% Station: 0 Postion/Presentation: Cephalic presentation Assessment and Plan Age: 30 : 2 Term: 0 Pre-term: 0 Abortions: 1 Livin Weeks & Days 39w3d Status: Reassuring Group B Streptococcus: Negative Anticipate: Vaginal Delivery MELODY HUMPHREY CNM Jul 12, 2021 15:50
[2021-07-12] MEDS ORDERED: LIDOCAINE 1% MDV 20ML VIAL IM ONE (16:40)
--- NOTE | 2021-07-12 16:44 | IPNPDOC ---
Obstetrical Progress Note Date of Service Jul 12, 2021 Objective Vital Signs Date Time Temp Pulse Resp B/P (MAP) Pulse Ox O2 Delivery O2 Flow Rate FiO2 07/12/21 15:52 97.8 104 18 151/98 (115) Assessment and Plan Additional Comments To room for acceptance of care. Patient tolerating contractions well. CAT I NST reactive. SVE checked at 1600 and was 7cm. VS with intermittent mild range BPs and single severe range, meeting criteria for GHTN, will order tox labs. Discussed pain control options in active labor, patient declines epidural but does desire pudendal block when complete. Plan to reassess in 2h after last exam or sooner if clinically indicated. AUGUSTO COURTNEY DO Jul 12, 2021 16:44
[2021-07-12 17:52] LABS: CORD GAS ABE V -5.4; CORD GAS HCO3 V 20.2 MEQ/L; CORD GAS O2 SAT V 99.7 %; CORD GAS PCO2 V 40.2 mmHg; CORD GAS PH V 7.32 UNITS; CORD GAS PO2 V 182.5 mmHg; CORD GAS SBC V 20.1 MEQ/L; CORD GAS TCO2 V 21.5 MEQ/L
--- NOTE | 2021-07-12 18:11 | DNPDOC ---
[facility] Delivery Note Delivery Note DATE OF DELIVERY: 07/12/21 PREDELIVERY DIAGNOSIS: 39+3/7 weeks' gestation and labor. POST DELIVERY DIAGNOSIS: Delivered. Gestational hypertension. PROCEDURE: vaginal delivery, repair of preiurethral and second degree midline laceration, sweep of retained membranes ARCHIVIST ECONOMIC HISTORY: Dr. Diego Courtney ANESTHESIA: lidocaine local injection ESTIMATED BLOOD LOSS: 200 mL. FINDINGS: 3300g infant, Score 8/9, nuchal cord times 0. DELIVERY SUMMARY: Ms. Moreno is a 30yo at 39+3 who was induced and progressed to C/C/+3 and with good maternal effort delivered the head followed by the corpus without difficulty. The father of the baby delivered the body per the patients request. The baby had spontaneous movement and cry. Cord clamping was delayed then it was cut by the father of the baby. Cord blood and gasses were obtained. The placenta delivered with gentle downward traction and appeared in-tact. Vaginal bleeding was scant and the uterus was firm. A mujica was placed and approx 200cc of urine was drained. A pre-urethral laceration was repaired with vicryl rapid, a second degree laceration was repaired with 2-0 vicryl. An increase in bleeding was noted coming from the cervix. A Uterine sweep was performed and some amniotic membranes were retrieved. 2g of ancef was administered. The bleeding then resolved to scant. The sponge, lap, and needle counts were correct. DIEGO COURTNEY DO Jul 12, 2021 18:11
[2021-07-12] MEDS ORDERED: ACETAMINOPHEN TAB 650MG DOSE (2X325MG) PO PRN (18:15)
[2021-07-12] MEDS ORDERED: ACETAMINOPHEN 500 MG TAB PO PRN (18:15)
[2021-07-12] MEDS ORDERED: ceFAZolin SOD 2 GM in IV 1 EA IV ONE (18:15)
[2021-07-12] MEDS ORDERED: IBUPROFEN 600MG TAB PO PRN (18:15)
[2021-07-12] MEDS ORDERED: DOCUSATE SODIUM 100MG CAPSULE PO PRN (18:15)
[2021-07-12 18:28] LABS: TOTAL PROTEIN,RANDOM URINE 23.6 MG/DL (0.0-12.0)
[2021-07-12] MEDS: ceFAZolin SOD 1 GM in D5W MINI-BAG PLUS 50 ML IV SCH ×2 (18:51→19:16)
[2021-07-12] MEDS: IBUPROFEN 800 MG TAB PO PRN (20:30)
--- NOTE | 2021-07-13 04:10 | IPNPDOC ---
Progress Note Date of Service: Jul 13, 2021 Progress Note SUBJECT: Ms. Moreno is a 30yo PPD1 who was induced and had a vaginal delivery at 39+3, 3300g , Score 8/9, EBL 200cc, with a second degree midline and periurethral laceration. Retained amniotic membranes were retrieved after her delivery and she received 2g of ancef. She was diagnosed with gestational hypertension during labor, her pre-eclampsia labs are pending. She has been ambulating, voiding spontaneously without issue and tolerating regular diet. Breast feeding without issue. Reports lochia is less than a normal period. Patient is ambulating well. Reports some cramping with . Denies any pain. Voiding and passing flatus without difficulty. OBJECTIVE: VITAL SIGNS: Within normal limits, afebrile. Alert and oriented times three. No increased wob Heart rate: non tachy Abdomen: Fundus firm at U-2. Soft, NTTP. [Minimal] lochia per pt ASSESSMENT: Ms. Moreno is a 30yo PPD1 who was induced and had an uncomplicated vaginal delivery at 39+3, 3300g infant, Score 8/9, EBL 200cc, with a second degree midline and periurethral laceration. Retained amniotic membranes were retrieved after her delivery and she received 2g of ancef. She was diagnosed with gestational hypertension during labor, her pre-eclampsia labs are pending. Vitals within normal limits, afebrile, hemodynamically stable with no evidence of infection. PLAN: 1. Discharge to home likely tomorrow. 2. Tylenol and Motrin for pain. 3. Encourage breast feeding and ambulation. 4. Undecided contraception, educated on risk of close interval . 5. Routine PP visit in 72h and 7d (blood pressure checks), 2 wks (history of depression/anxiety) and 6 weeks in clinic. 6. Discussed return precautions at length (to include signs and symptoms of pre- eclampsia) and activity limitations (pelvic rest). 7. Follow up on pre-eclampsia labs. VS, I&O, 24H, Fishbone Vital Signs/I&O Vital Signs Date Time Temp Pulse Resp B/P (MAP) Pulse Ox O2 Delivery O2 Flow Rate FiO2 07/12/21 20:30 97.8 78 16 122/56 (78) Room Air I&O- Last 24 Hours up to 6 AM 07/13/21 06:00 Intake Total 1202 ml Output Total 700 ml Balance 502 ml Laboratory Data 24H LABS Laboratory Tests 2 07/12/21 04:49: Nucleated Red Blood Cells % (auto) 0.0, Syphilis Serology NONREACTIVE 07/12/21 04:56: Serology Scanned Report Hepatitis B Testing 07/12/21 17:38: Urine Random Creatinine 152.0, Urine Random Total Protein 23.6H, Cord Venous Blood pH 7.320, Cord Venous Blood PCO2 40.2, Cord Venous Blood PO2 182.5, Cord Venous Blood HCO3 20.2, Cord Venous Blood Total CO2 21.5, Cord Venous Base Excess (Actual) -5.4, Cord Venous Base Excess (Standard) 20.1, Cord Venous Blood Oxygen Saturation 99.7 CBC/BMP Laboratory Tests 07/12/21 04:49 AUGUSTO COURTNEY DO Jul 13, 2021 04:10
[2021-07-13 05:31] LABS: HEMOGLOBIN 10.1 g/dl (12.0-15.5); MEAN CORPUSCULAR HEMOGLOBIN 31.4 pg (27.0-33.0); MEAN CORPUSCULAR HGB CONC 34.8 g/dl (32.0-36.5); MEAN CORPUSCULAR VOLUME 90.1 fl (80.0-96.0); PLATELET COUNT, AUTOMATED 201 10^3/uL (150-450); RED BLOOD COUNT 3.22 10^6/uL (4.00-5.40); WHITE BLOOD COUNT 16.7 10^3/uL (4.0-10.0)
[2021-07-13 05:50] VITALS: BP 115/57
[2021-07-13 06:09] LABS: ALT/SGPT 15 U/L (12-78); BLOOD UREA NITROGEN 13 MG/DL (7-18); CALCIUM LEVEL 8.3 MG/DL (8.5-10.1); CARBON DIOXIDE LEVEL 22 MEQ/L (21-32); CHLORIDE LEVEL 109 MEQ/L (98-107); CREATININE FOR GFR 0.87 MG/DL (0.55-1.30); GLOMERULAR FILTRATION RATE > 60.0 (>60); GLUCOSE, FASTING 113 MG/DL (70-100); POTASSIUM SERUM 3.7 MEQ/L (3.5-5.1); SODIUM LEVEL 140 MEQ/L (136-145)
[2021-07-13 06:10] LABS: ALBUMIN 2.3 GM/DL (3.2-5.2); BILIRUBIN,TOTAL 0.4 MG/DL (0.2-1.0); TOTAL PROTEIN 5.6 GM/DL (6.4-8.2)
[2021-07-13] MEDS: IBUPROFEN 800 MG TAB PO PRN (07:58)
[2021-07-13] MEDS: PRENATAL VITAMINS CHEWABLE TABLET PO SCH (07:58)
[2021-07-13 18:00] VITALS: BP 138/60
[2021-07-14 05:59] VITALS: BP 121/72
--- NOTE | 2021-07-14 06:57 | DS.PDOC ---
Discharge Summary General Date of Admission Jul 12, 2021 at 4:47 am Date of Discharge 07/14/2021 Discharge Summary PROCEDURES PERFORMED DURING STAY: VAGINAL DELIVERY ADMITTING DIAGNOSES: 1. LABOR DISCHARGE DIAGNOSES: 1. VAGINAL DELIVERY 2. GHTN COMPLICATIONS/CHIEF COMPLAINT: LABOR. HISTORY OF PRESENT ILLNESS: Ms. Moreno is a 30yo PPD1 who was induced at term. Hospital course: she had a vaginal delivery at 39+3, 3300g infant, Score 8/9, EBL 200cc, with a second degree midline and periurethral laceration. Retained amniotic membranes were retrieved after her delivery and she received 2g of ancef. She was diagnosed with gestational hypertension during labor, her pre-eclampsia labs Remained normal. at time of discharge, she was voiding, ambulation, tolerating PO diet and bonding well with baby. DISCHARGE MEDICATIONS: Please see below. ALLERGIES: Please see below. PHYSICAL EXAMINATION ON DISCHARGE: VITAL SIGNS: Please see below. GENERAL: well appearing CARDIOVASCULAR EXAMINATION: regular rate and rythm RESPIRATORY EXAMINATION: normal work of breathing ABDOMINAL EXAMINATION: appropriately tender, Fundus at u-1 EXTREMITIES: grossly normal. no vipul sign PSYCHIATRIC EXAMINATION: normal affect LABORATORY DATA: Please see below. IMAGING: none PROGNOSIS: Good ACTIVITY: pelvic rest DIET: regular DISCHARGE PLAN: d/c today DISPOSITION: home DISCHARGE INSTRUCTIONS: 1. given by nursing ITEMS TO FOLLOWUP ON ON OUTPATIENT: 1. BP check on PPD 3 AND 7. ROUTINE PP AT 2 ( ANXIETY AND DEPRESSION) AND 6 WEEKS ( Routine ) DISCHARGE CONDITION: Stable. TIME SPENT ON DISCHARGE:60 minutes. Vital Signs/I&Os Vital Signs Date Time Temp Pulse Resp B/P (MAP) Pulse Ox O2 Delivery O2 Flow Rate FiO2 07/13/21 18:00 98.5 80 16 138/60 (86) 100 Room Air I&O- Last 24 Hours up to 6 AM 07/14/21 06:00 Intake Total 600 ml Balance 600 ml Laboratory Data Labs 24H Laboratory Tests 2 07/13/21 05:19: Nucleated Red Blood Cells % (auto) 0.0, Anion Gap 9, Glomerular Filtration Rate > 60.0, Calcium Level 8.3L, Total Bilirubin 0.4, Aspartate Amino Transf (AST/SGOT) 21, Alanine Aminotransferase (ALT/SGPT) 15, Alkaline Phosphatase 143H, Total Protein 5.6L, Albumin 2.3L, Albumin/Globulin Ratio 0.7L CBC/BMP Laboratory Tests 07/13/21 05:19 Discharge Medications Scheduled No.137/Iron/Folic Acd ( Vitamin Tablet) 1 Each Tablet, 1 TAB PO DAILY, (Reported) Allergies Coded Allergies: pineapple (Verified Allergy, Unknown, 02/10/21) TRACE ECKERT MD Jul 14, 2021 04:47
[2021-07-14] MEDS ORDERED: INFLUENZA QUADRIVALENT PF VACCINE 0.5ML SYRINGE IM ONE (09:00)
[2021-07-14] MEDS: PRENATAL VITAMINS CHEWABLE TABLET PO SCH (09:43)
== END 2021-07-14 14:10 | disposition home or self-care (01) | DRG 807 ==
LOC: M LDO 04:01 → M LDI 04:47 → M OBS 20:46
PROVIDERS: ADMIT Obstetrics & Gynecology; ATTEND Obstetrics & Gynecology
PROC: 10D17Z9 Manual Extraction of Products of Conception, Retained, Via Natural or Artificial Opening (ICD-10-PCS; principal; 2021-07-12)
PROC: 0KQM0ZZ Repair Perineum Muscle, Open Approach (ICD-10-PCS; 2021-07-12)
PROC: 10E0XZZ Delivery of Products of Conception, External Approach (ICD-10-PCS; 2021-07-12)
DX: O73.1 Retained portions of placenta and membranes, without hemorrhage (principal); Z37.0 Single live birth; Z3A.39 39 weeks gestation of pregnancy; O13.4 Gestational [pregnancy-induced] hypertension without significant proteinuria, complicating childbirth; O70.1 Second degree perineal laceration during delivery